=== PATIENT | female | born 1965 | race African-American/Black ===

== ENCOUNTER 2017-11-04 22:24 | Emergency (ER) | payer BC, MEDICAID, OTHER ==
[~2017-11-04] VITALS: Ht 175.3 cm; Wt 108.9 kg
--- NOTE | 2017-11-04 22:29 | Emergency Room Report ---
History of Present Illness General Chief Complaint: To Be Triaged Source: Patient Present Illness HPI 52YOF with sore throat for 5 days No assoc cough, rhinorrhea, nasal congestion, SOB, chest pain, headache, fever/ chills PCN allergy Allergies: Coded Allergies: PENICILLINS (Verified Allergy, Unknown, 11/04/17) swelling, rashes Patient History Past Medical History: none Past Surgical History: none Pertinent Family History: none Social History: Denies: smoking, alcohol use, drug use Now: No Immunizations: UTD Reviewed Nursing Documentation: PMH: Agreed, PSxH: Agreed Review of Systems All Other Systems: negative except mentioned in HPI Physical Exam Sp02 EP Interpretation: reviewed, normal General Appearance: normal inspection, well appearing, no apparent distress, alert, GCS 15, non-toxic Head: normocephalic, atraumatic Eyes: bilateral eye PERRL, bilateral eye EOMI ENT: normal ENT inspection, hearing grossly normal, normal pharynx, no angioedema, normal voice, TMs + canals normal, uvula midline, moist mucus membranes, tonsillar swelling, pharyngeal erythema, tonsillar exudate, other - Right sided very enlarged tonsillitis with multiple exudates. No DOUGH RAISER> Uvula midline. Neck: normal inspection, full range of motion, supple, thyroid normal, no meningismus, no bony tend Respiratory: normal inspection, lungs clear, normal breath sounds, no rhonchi, no respiratory distress, no retraction, no accessory muscle use, no wheezing, speaking full sentences Cardiovascular #1: regular rate, rhythm, no edema, no JVD, normal capillary refill Gastrointestinal: normal inspection, normal bowel sounds, non tender, soft, no mass, no peritonitis, non-distended, no guarding, no hernia, no pulsatile mass Genitourinary: no CVA tenderness Musculoskeletal: normal inspection, back normal, normal range of motion, no calf tenderness, pelvis stable, Zurdo's Sign negative Neurologic: normal inspection, alert, oriented x3, responsive, technical solutions director III-XII nml as tested, motor strength/tone normal, cerebellar normal, normal gait, speech normal Psychiatric: normal inspection, judgement/insight normal, mood/affect normal, no suicidal/homicidal ideation, no delusions Skin: normal inspection, normal color, no rash Lymphatic: normal inspection, no adenopathy Medical Decision Making Diagnostic Impression: Primary Impression: Sore throat Additional Impression: Tonsillitis ER Course VSS, afebrile Not septic appearing Well appearing Decardon given in ED Rx Khadijah Sanderson Close PMD followup ER course: Patient has remained stable during ED stay. Disposition: Patient is to be discharged to home. Prescriptions given are roxipakhadijah chavira Patient is instructed to follow up with their primary care doctor within 5 days. Strict return precautions discussed with patient such as fever, chills, worsening/severe pain, nausea, vomiting, which may indicate severe illness. Patient verbalizes understanding and agrees with plan. Please note that this Emergency Department Report was dictated using [employer] technology software, occasionally this can lead to erroneous entry secondary to interpretation by the dictation equipment Status: improved Disposition: HOME, SELF-CARE Scripts Ibuprofen* (MOTRIN*) 800 Mg Tablet 800 MG ORAL THREE TIMES A DAY for sore throat for 7 Days, #30 TAB 0 Refills Prov: JULIET NORTH M.D. 11/04/17 Azithromycin* (ZITHROMAX*) 250 Mg Tablet 250 MG ORAL DAILY for 5 Days, #6 TAB 0 Refills Take two tables once daily for 1 day, then one tablet once daily for 4 days. Prov: JULIET NORTH M.D. 11/04/17 JULIET NORTH M.D. Nov 04, 2017 22:29
[2017-11-04] MEDS ORDERED: DIOVAN80 MG ORAL (22:33)
[2017-11-04] MEDS ORDERED: VALACYCLOVIR500 MG ORAL (22:33)
[2017-11-04 22:36] VITALS: BP 140/94
[2017-11-04] MEDS ORDERED: IBUPROFEN800 MG ORAL (22:44)
[2017-11-04] MEDS ORDERED: ZITHROMAX250 MG ORAL (22:44)
[2017-11-04] MEDS ORDERED: Dexamethasone 4mg/ml vial ORAL ONE (22:45)
[2017-11-04 22:55] VITALS: BP 140/94
== END 2017-11-04 22:55 | disposition home or self-care (01) ==
LOC: EMR 22:50
DX: J03.90 Acute tonsillitis, unspecified (principal); Z88.0 Allergy status to penicillin
CPT/HCPCS: 99284; J1100